=== PATIENT | male | born 1955 | race Caucasian/White ===

== ENCOUNTER 2017-12-31 22:43 | Emergency (ER) | payer OTHER ==
[~2017-12-31] VITALS: Ht 177.8 cm; Wt 93.0 kg
[~2017-12-31 22:43] MED LIST: MEDROL4 M2 PO; PERCOCET 5-3251 EACH PO; SKELAXIN800 M1 PO
--- NOTE | 2018-01-01 00:01 | ED GENERAL ADULT ---
History of Present Illness General Chief Complaint: General Adult Stated Complaint: VOMITTING BLOOD Source: patient Exam Limitations: no limitations Vital Signs & Intake/Output Vital Signs & Intake/Output Vital Signs Date Time Temp Pulse Resp B/P B/P Pulse O2 O2 Flow FiO2 Mean Ox Delivery Rate 01/01 0016 96 Room Air 12/31 2252 99.2 80 18 131/81 95 Room Air ED Intake and Output 01/01 0000 12/31 1200 Intake Total Output Total Balance Patient 205 lb Weight Weight Reported by Patient Measurement Method Allergies Coded Allergies: NSAIDS (Non-Steroidal Anti-Inflamma (BLEEDING 05/13/16) Reconcile Medications Metaxalone (Skelaxin) 800 MG TABLET 1 TAB PO TID PRN MUSCLE RELAXATION Methylprednisolone. (Medrol) 4 MG TAB.DS.PK 1 DP PO AD INFLAMMATION 6 on day 1 then reduce by one tablet daily until gone Oxycodone HCl/Acetaminophen (Percocet 5-325 MG Tablet) 1 EACH TABLET 1 TAB PO BID PRN PAIN Triage Note: PT FROM HOME C/O "SPITTING UP BLOOD" PER PT. PT STATES HE CRACKED RIBS ON LEFT SIDE 1X WEEK AGO .PT STATES TODAY HE AWOKE AND WAS COUGHING UP BLOOD TINGED SPUTUM. PTS PCP TOLD HIM TO COME IN ER. VSS. Triage Nurses Notes Reviewed? yes Onset: Abrupt Duration: day(s): (1), constant, continues in ED, getting worse Timing: single episode today Injury Environment: home Severity: mild, moderate Severity Numbers: 8 No Modifying Factors: none HPI: 62 year old male hx of ra, chronic back pain, presents for eval of hemoptysis, chest painand left rib pain. pt reprost about one week ago he had fallen onto his left ribs causing to minimally displaced rib fractures on the left side. Patient states that he had been feeling better until he woke up today and noticed some generalized chest tightness. He was located left-sided chest without any area of the broken ribs. He states that the pain was initially very mild. Later that day he had an episode of hemoptysis. Later he felt nauseous and had several episodes of vomiting. After this the pain in his left lateral ribs became much more severe. He had another episode of hemoptysis and now pleuritic chest pain. The pain is worse with touching the left ribs and deep inspiration. He reports shortness of breath. No lower extremity edema or fever. he did have surgery on the of last month on his right shoulder. It was an open surgery. No blood thinners no history of DVT. He reports pain is 7 out of 10 in the left ribs. (Palomo Hudson) Past History Travel History Traveled to [place] past 21 day No Medical History Any Pertinent Medical History? see below for history Gastrointestinal: BARIATRIC SURGERY Musculoskeletal: chronic back pain, rheumatoid arthritis, BURSITIS Surgical History Surgical History: GASTRIC BYPASS LUMBAR SURGERY Psychosocial History What is your primary language Croatian Tobacco Use: Quit >30 days ago Family History Hx Contributory? No (Palomo Hudson) Review of Systems Review of Systems Constitutional: Reports: no symptoms. EENTM: Reports: no symptoms. Respiratory: Reports: see HPI, hemoptysis, short of breath. Cardiovascular: Reports: see HPI, chest pain. GI: Reports: no symptoms. Genitourinary: Reports: no symptoms. Musculoskeletal: Reports: no symptoms. Skin: Reports: no symptoms. Neurological/Psychological: Reports: no symptoms. Hematologic/Endocrine: Reports: no symptoms. Immunologic/Allergic: Reports: no symptoms. All Other Systems: Reviewed and Negative (Palomo Hudson) Physical Exam Physical Exam General Appearance: well developed/nourished, no apparent distress, alert, awake Head: atraumatic, normal appearance Eyes: Bilateral: normal appearance, PERRL, EOMI. Ears, Nose, Throat: normal pharynx, normal ENT inspection, hearing grossly normal Neck: normal inspection, supple, full range of motion Respiratory: normal breath sounds, no respiratory distress, left lateral ribs tender to palpation no bruising swelling abrasions, crepitus Cardiovascular: regular rate/rhythm, normal peripheral pulses Peripheral Pulses: 2+ radial (R), 2+ radial (L) Gastrointestinal: normal bowel sounds, soft, no organomegaly, tenderness (ruq, epigastric ) Back: normal inspection, normal range of motion, no vertebral tenderness Extremities: normal inspection, normal range of motion, no edema Neurologic/Psych: no motor/sensory deficits, awake, alert, oriented x 3, normal gait, normal mood/affect Skin: intact, normal color, warm/dry Lymphatic: no anterior cervical andrzej Core Measures ACS in differential dx? No CVA/TIA Diagnosis: No Sepsis Present: No Sepsis Focused Exam Completed? No (Black PA,Palomo) Progress Differential Diagnoses I considered the following diagnoses in my evaluation of the patient: [PE, pneumothorax, pneumonia, rib fracture, pulmonary contusion, hemothorax or acute coronary syndrome, muscle strain] Plan of Care: Orders Procedure Date/time Status BLOOD CULTURE 01/02 156 Active Add-on Test (ER Only) 01/01 0043 Active D-DIMER 01/01 001 Complete EKG 12/31 2358 Active TROPONIN LEVEL 01/01 2324 Complete PARTIAL THROMBOPLASTIN TIME 01/01 2324 Complete PROTHROMBIN TIME 01/01 2324 Complete LIPASE 01/01 2324 Complete COMPREHENSIVE METABOLIC PANEL 01/01 2324 Complete CBC WITHOUT DIFFERENTIAL 01/01 2324 Complete Current Medications Sig/Colton Start time Last Medication Dose Stop Time Status Admin Morphine Sulfate 4 MG ONCE ONE 01/01 030 UNVr (Morphine) 01/01 030 Azithromycin 500 MG ONCE ONE 01/01 0200 AC (Zithromax) 01/01 0259 Sodium Chloride 250 ML (Normal Saline 0.9%) Oxycodone/ 1 TAB ONCE ONE 12/31 2345 CAN Acetaminophen 12/31 234 (Percocet) Laboratory Tests 01/01/18 0012: Anion Gap 8, Estimated GFR > 60, BUN/Creatinine Ratio 26.7 H, Glucose 104 H, Calcium 8.3 L, Total Bilirubin 0.8, AST 18, ALT 26, Alkaline Phosphatase 76, Troponin I < 0.01, Total Protein 5.8 L, Albumin 3.1 L, Globulin 2.7, Albumin/ Globulin Ratio 1.1, Lipase 18 L, PT 12.3, INR 1.13, APTT 25, D-Dimer High Sensitivty 1044 H, CBC w Diff NO MAN DIFF REQ, RBC 3.96 L, MCV 89.4, MCH 29.8, MCHC 33.3, RDW 15.0 H, MPV 7.2 L, Gran % 80.8 H, Lymphocytes % 9.7 L, Monocytes % 7.6, Eosinophils % 1.2, Basophils % 0.7, Absolute Granulocytes 10.6 H, Absolute Lymphocytes 1.3, Absolute Monocytes 1.0 H, Absolute Eosinophils 0.2 , Absolute Basophils 0.1 Microbiology 01/02 156 BLOOD: Blood Culture - ORD 01/02 156 BLOOD: Blood Culture - ORD Patient seen and evaluated. He is here with episodes of hemoptysis nausea vomiting and left lateral rib pain. He did have fractures of the left lateral ribs but was initially feeling better until today when he started with hemoptysis. There is no additional trauma but did vomit. He also has risk factors for PE including surgery less than a month ago and recent trauma. Patient requires CTA as well as a CT of the abdomen and pelvis for further evaluation. EKG was obtained and does show some T-wave inversions in lead 3 and aVF that were not present previously. Patient medicated with morphine. Patient signed out to Dr. alvarado pending CTA and labs Initial ED EKG: sinus rhythm with left axis deviation. T-wave inversions in lead 3 and aVF Prior EKG: changed (T-wave inversions iii avf) Hand-Off Endorsed To: Arturo Alvarado MD Endorsed Time: 99 Pending: CT, labs (Palomo Hudson) Diagnostic Imaging: Viewed by Me: CT Scan. Discussed w/RAD: CT Scan. Comments: D/W [facility] Dr. Zaidi suggests transfer to ED to assess for appropriate bed. (Arturo Alvarado MD) Departure Departure Disposition: STILL A PATIENT Condition: Stable Referrals: Griffin Agustin MD (PCP/Family) Departure Forms: Customer Survey General Discharge Information (Palomo Hudson) Departure Clinical Impression Primary Impression: Pulmonary embolism Secondary Impressions: Hemoptysis, Pneumonia PA/CLINICAL SERVICES DIRECTOR Co-Sign Statement Statement: ED Attending supervision documentation- c I saw and evaluated the patient. I have also reviewed all the pertinent lab results and diagnostic results. I agree with the findings and the plan of care as documented in the PA's/CLINICAL SERVICES DIRECTOR's documentation. [] I have reviewed the ED Record and agree with the PA's/CLINICAL SERVICES DIRECTOR's documentation. [] Additions or exceptions (if any) to the PAs/CLINICAL SERVICES DIRECTOR's note and plan are summarized below: [] (Arturo Alvarado MD) Critical Care Note Critical Care Note Critical Care Time: non-applicable (Palomo Hudson) Critical Care Note Critical Care Time: 30-74 min (40) (Arturo Alvarado MD)
[2018-01-01 00:27] LABS: ABSOLUTE BASOPHIL COUNT 0.1 /CUMM (0.0-0.2); ABSOLUTE EOSINOPHIL COUNT 0.2 /CUMM (0.0-0.7); ABSOLUTE GRANULOCYTE CT 10.6 /CUMM (1.4-6.5); ABSOLUTE LYMPH COUNT 1.3 /CUMM (1.2-3.4); BASOPHIL % 0.7 % (0.0-2.0); EOSINOPHIL % 1.2 % (0-5); GRANULOCYTE % 80.8 % (42.2-75.2); HEMATOCRIT 35.5 % (42-52); MEAN CORPUSCULAR HGB 29.8 PG (27.0-31.0); MEAN CORPUSCULAR HGB CONC 33.3 G/DL (33.0-37.0); MEAN CORPUSCULAR VOLUME 89.4 FL (80.0-94.0); MEAN PLATELET VOLUME 7.2 FL (7.4-10.4); PLATELET COUNT 168 /CUMM (130-400); RED BLOOD CELL CT 3.96 /CUMM (4.70-6.10); WHITE BLOOD CELL COUNT 13.1 /CUMM (4.8-10.8)
[2018-01-01 00:34] LABS: PT 12.3 SEC (9.4-12.5); PTT 25 SEC (25-37)
--- NOTE | 2018-01-01 01:50 | CT SCAN REPORT ---
EXAMINATIONS: CT PULMONARY EMBOLISM STUDY AND CT ABDOMEN AND PELVIS WITH CONTRAST CLINICAL INFORMATION: Hemoptysis. Left-sided chest pain. Diffuse abdominal pain. COMPARISON: May 11, 2016. TECHNIQUE: Contiguous helical images of the chest were obtained following the administration of IV contrast. Multiplanar reconstructions were performed. MIPS were obtained and reviewed. Contiguous axial thin section helical images of the abdomen and pelvis were performed following the administration of IV contrast. The data set was reformatted in the coronal and sagittal planes and reviewed on an independent workstation. DLP: 1620 mGy-cm. CONTRAST: 95 cc of Optiray 320 were demonstrated without incident. FINDINGS: The heart is of normal size. There is no pericardial effusion. There are filling defects within branches of the right lower lobe pulmonary artery indicative of pulmonary emboli. There is neither mediastinal nor axillary lymphadenopathy. There is a right hilar lymph node present measuring 8 mm in short axis. There are no chest wall masses. Review of lung windows demonstrates that there are no pneumothoraces. There is a small left pleural effusion. There is patchy groundglass opacification within the left lower lobe along with mild volume loss. Within the right middle lobe on image 248/487, there is a 7 mm nodule. The liver is of normal size and diffuse decreased attenuation without concerning focal lesions nor intrahepatic biliary ductal dilation. Within the inferior right lobe of the liver on image 199/760, there is a stable 8 mm low-attenuation lesion. A normal gallbladder is identified. There is no wall thickening or discernible pericholecystic fluid. The spleen, pancreas, adrenal glands are unremarkable. Both kidneys are of normal size and attenuation without hydronephrosis. There are several punctate nonobstructive renal calculi bilaterally. The largest on the right measures 5 mm within the interpole region. The largest on the left measures 5 mm within the interpole region. There is a left extrarenal pelvis. Following the administration of IV contrast, prompt symmetric nephrograms are displayed. There is no abdominal free fluid. There is neither mesenteric nor retroperitoneal lymphadenopathy. Normal unopacified loops of small and large bowel are identified. There is no pelvic free fluid. The urinary bladder is unremarkable. There is neither pelvic nor inguinal lymphadenopathy. Bone windows: Neither sclerotic nor lytic bone lesions are identified. There is lower lumbar spine disc height loss. IMPRESSION: Right lower lobe pulmonary emboli. Small left pleural effusion with patchy groundglass opacification throughout the left lower lobe. Pneumonia cannot be excluded. Hepatic steatosis. Neither cholelithiasis nor cholecystitis. Punctate nonobstructive renal calculi bilaterally without hydronephrosis. Stable 7 mm right middle lobe pulmonary nodule. The aforementioned was communicated to Dr. Alvarado at 0144 hours.
[2018-01-01 03:00] VITALS: BP 129/87
== END 2018-01-01 03:00 | disposition short-term general hospital (02) ==
LOC: ERH 22:43
PROVIDERS: Physician Assistant Medical
DX: I26.99 Other pulmonary embolism without acute cor pulmonale (principal); J18.9 Pneumonia, unspecified organism; R04.2 Hemoptysis; Z87.891 Personal history of nicotine dependence; R07.89 Other chest pain; R11.2 Nausea with vomiting, unspecified
CPT/HCPCS: 74177; 87040; 93005; 93010; 96374; 96375; 96376; 99291; J0456; J0696; J7040